=== PATIENT | male | born 1965 | race Caucasian/White ===

== ENCOUNTER 2019-04-15 14:17 | Emergency (ER) | payer OTHER, SELFPAY ==
[2019-04-15 14:36] VITALS: BP 129/72; PULSE 87; RESP 18; TEMP 37.5; O2SAT 98
--- NOTE | 2019-04-15 15:08 | ED.GENADULT ---
HPI - General Adult General Chief complaint: Dental/Oral Stated complaint: cough chest congestion Time Seen by Provider: 04/15/19 15:10 Source: patient and RN notes reviewed Mode of arrival: ambulatory Limitations: no limitations History of Present Illness HPI narrative: This is a 54 years old male presented office for evaluation of cold symptoms for 1 to 2 weeks. Symptoms began with scratchy throat, stuffy nose, and then cough. Denies fever however he felt warm. He also admits to really bad teeth however he cannot afford to see a dentist. No treatment prior to arrival. He smoke a pack a day. Denies sick contact at home. Related Data Allergies Allergy/AdvReac Type Severity Reaction Status Date / Time No Known Allergies Allergy Unverified 03/07/16 15:31 Review of Systems Review of Systems: Narrative: CONSTITUTIONAL: Denies fever ENT:Reports rhinorrhea, congestion, sore throat, dental pain CARDIOVASCULAR: Denies chest pain RESPIRATORY: Denies dyspnea, wheezing. Reports cough GASTROINTESTINAL: Denies abdominal pain, nausea, vomiting, diarrhea. GENITOURINARY: Denies urinary symptoms or discharge SKIN: Denies rash MUSCULOSKELETAL: Denies acute back pain NEUROLOGIC: Denies lightheaded PMFSH Social History Social History Smoking packs per day: 1 Smoking cigarettes per day: 20.0 Smoking status: Current every day smoker Comments At time of signature, I agree with nursing past medical, surgical, social and family history. There is no relevant family history pertinent to the presenting complaint. Exam Narrative: Exam Narrative: GENERAL: This is well-developed patient, thin, older than states age, in no apparent distress. EYES: Sclera clear/white. Vision is grossly intact. EARS: External ears normal, auditory canals clear and without drainage, TMs normal without perforation. Hearing grossly intact. NOSE: External nose normal with no obvious nasal discharge, nares without redness, no rhinorrhea. THROAT: Mucous membranes moist, posterior pharynx erythema with drainage. NECK: Neck supple, non-tender without lymphadenopathy, masses or thyromegaly. CARDIOVASCULAR: Regular rate and rhythm without murmurs, gallops, or rubs. RESPIRATORY: Diminished breath sounds throughout. Breath sounds equal bilaterally. No wheezes, rales, or rhonchi. GASTROINTESTINAL: Abdomen soft, non-tender, nondistended. Bowel sounds are active. No hepato-splenomegaly, or palpable masses. No guarding. SKIN: warm, intact with no suspicious lesions or rash, good texture and turgor. NEURO: awake, alert, and oriented to person, place and time. There were no obvious focal neurologic abnormalities. Steady gait Sunshine Coma Scale Eye Opening: Spontaneous 4 Sunshine Coma Scale Motor: Obeys Commands 6 Sunshine Coma Scale Verbal: Oriented 5 Course Vital Signs Vital signs: Vital Signs Temperature 99.5 F 04/15/19 14:36 Pulse Rate 87 04/15/19 14:36 Respiratory Rate 18 04/15/19 14:36 Blood Pressure 129/72 04/15/19 14:36 Pulse Oximetry 98 04/15/19 14:36 Temperature 99.5 F 04/15/19 14:36 Pulse Rate 87 04/15/19 14:36 Respiratory Rate 18 04/15/19 14:36 Blood Pressure 129/72 04/15/19 14:36 Pulse Oximetry 98 04/15/19 14:36 Medical Decision Making MDM Narrative Medical decision making narrative: Discharge instructions reviewed with patient, as well as provided in writing per nursing staff. The instructions also include specific and strict return/GO TO THE ER as well as f/u information. All questions have been answered, and the patient deny any further questions with discharge and discharge plan. Differential Diagnosis Differential Diagnosis: pneumonia, Allergic Rhinitis, Upper respiratory cough syndrome, Pharyngitis, Sinusitis, Bronchitis, otitis media, viral URI, Asthma/reactive airway disease, influenza, gingivitis, dental abscess, sinusitis, sialadenitis, [place], trig
== END 2019-04-15 15:22 | disposition home or self-care (01) ==
PROVIDERS: Emergency Provider Nurse Practitioner
DX: K02.9 Dental caries, unspecified (principal); J06.9 Acute upper respiratory infection, unspecified; R05 Cough; F17.200 Nicotine dependence, unspecified, uncomplicated
CPT/HCPCS: 99203; G0463

== ENCOUNTER 2019-05-26 13:46 | Emergency (ER) | payer OTHER, SELFPAY ==
[2019-05-26 13:55] VITALS: BP 127/73; PULSE 78; RESP 20; TEMP 37.6; O2SAT 98
--- NOTE | 2019-05-26 14:02 | ED.DENTAL ---
HPI - Dental/Oral General Stated complaint: Teeth pain Time Seen by Provider: 05/26/19 14:03 Source: patient and RN notes reviewed Mode of arrival: ambulatory Limitations: no limitations History of Present Illness HPI Narrative: 54-year-old male presents with concern for dental pain. He reports he was on antibiotic approximately 1-1/2 months ago that offered some relief however the pain has returned. He reports he has not been able to afford to go to a dentist. He reports intermittent right cheek swelling. Reports being a smoker. Reports using aspirin, denies any other intervention MD Complaint: tooth pain Teeth map: 1. Broken teeth with caries Related Data Allergies Allergy/AdvReac Type Severity Reaction Status Date / Time No Known Allergies Allergy Unverified 05/26/19 14:12 Review of Systems Review of Systems: Narrative: CONSTITUTIONAL: Denies malaise, chills, sweats, or fever. EYES: Denies visual changes, redness, or discharge. ENT: Denies rhinorrhea, congestion, sinus pain, otalgia or sore throat. Reports right upper dental pain CARDIOVASCULAR: Denies chest pain, palpitations RESPIRATORY: Denies cough or dyspnea. GASTROINTESTINAL: Denies abdominal pain, nausea, vomiting, diarrhea SKIN: Reports intermittent right cheek swelling MUSCULOSKELETAL: Denies myalgia. NEUROLOGIC: Denies numbness, weakness, or headache. All systems reviewed & are unremarkable except as noted in HPI and below PMFSH Social History Social History Smoking packs per day: 1 Smoking cigarettes per day: 20.0 Smoking status: Current every day smoker Comments At time of signature, agree with nursing past medical, surgical, social and family history. There is no relevant family history pertinent to the presenting complaint Exam Narrative: Exam Narrative: GENERAL: Well-appearing, well-nourished, and in no acute distress. HEAD: Normocephalic, atraumatic. EYES: PERRLA, conjunctivae clear ENT: Nares clear. Mucous membranes moist. ropharynx without edema, erythema or lesions. Many missing teeth, broken teeth, caries. No periapical abscess noted. NECK: Supple. CHEST: No respiratory distress. Clear to auscultation. No bony deformities, no asymmetry. Speaks in full sentences. HEART: Regular rate and rhythm. No murmur heard. SKIN: Warm, dry NEURO: Alert and oriented x3. PSYCH: Normal mood and affect Course Course Emergency Course: Patient is aware of diagnosis, understands and agrees to treatment plan. Anticipatory guidance given. Patient agrees to follow-up as directed and is aware of reasons to seek care at the emergency department. Portions of this record may have been created with voice recognition software Vital Signs Vital signs: Vital Signs Temperature 99.6 F 05/26/19 13:55 Pulse Rate 78 05/26/19 13:55 Respiratory Rate 20 05/26/19 13:55 Blood Pressure 127/73 05/26/19 13:55 Pulse Oximetry 98 05/26/19 13:55 Temperature 99.6 F 05/26/19 13:55 Pulse Rate 78 05/26/19 13:55 Respiratory Rate 20 05/26/19 13:55 Blood Pressure 127/73 05/26/19 13:55 Pulse Oximetry 98 05/26/19 13:55 Reviewed. MDM - Dental/Oral MDM Narrative Medical decision making narrative: Patients pain and complaint coupled with physical findings are consistant with dentalgia. There are no focal signs of space occupying lesions that are compromising to the airway; no dysphagia, odynophagia, dysphonia, or dyspnea. No uvular deviation or soft palate edema. Patient is non-toxic appearing. The floor of the mouth is soft with no signs of Alfredo's Angina; no induration below mandible, no neck pain. Patient is without trismus or drooling and able to swallow secretions. Patient is felt appropriate for discharge home with dental follow up. Critical Care Time Critical Care Time Critical Care Time: No Discharge Plan Discharge Clinical Impression: Dentalgia Patient Dispositio
== END 2019-05-26 14:15 | disposition home or self-care (01) ==
PROVIDERS: Emergency Provider Nurse Practitioner
DX: K08.89 Other specified disorders of teeth and supporting structures (principal); F17.210 Nicotine dependence, cigarettes, uncomplicated
CPT/HCPCS: 99213; G0463

== ENCOUNTER 2020-06-15 08:50 | Emergency (ER) | payer OTHER, SELFPAY ==
[2020-06-15 08:54] VITALS: BP 118/56; PULSE 105; RESP 16; TEMP 36.9; O2SAT 100
--- NOTE | 2020-06-15 09:02 | ED.DENTAL ---
HPI - Dental/Oral General Chief complaint: Dental/Oral Stated complaint: tooth pain Time Seen by Provider: 06/15/20 09:03 Source: patient, RN notes reviewed and old records reviewed Mode of arrival: ambulatory Limitations: no limitations History of Present Illness HPI Narrative: 55 year old male presents to [facility] care with complaints of increase dental pain to upper right and lower right side of his gums and remaining teeth since this weekend. Patient has several missing, broken and obvious decayed teeth with stated history of dental problems for years. Patient states that he has been chewing on aspirin to the area for his discomfort which helps for a short interval. Patient admits to long history of tobacco abuse. He reports that he can only chew on the right side and with the pain he has had difficulty eating.Patient states that he has no dentist and has long history of bad teeth , denie any fevers chills or sweats or any difficulty with his swallowing or increased dyspnea. MD Complaint: tooth pain Location: Tooth # (2,3, lower gums 28 29,30 teeth broken off) Onset (ago): day(s) (3) Duration: constant Severity: mild (at present time) Severity scale (1-10): 1 Relieving factors: nothing Exacerbating factors: chewing, cold and heat Context: history of dental caries and poor dental care Associated symptoms: gum swelling Treatment prior to arrival: other (aspirin) Related Data Allergies Allergy/AdvReac Type Severity Reaction Status Date / Time No Known Allergies Allergy Unverified 06/15/20 09:02 Review of Systems Review of Systems: Narrative: CONSTITUTIONAL: Denies fever, chills, or sweats. EYES: Denies visual changes, redness, or discharge. ENT: Denies rhinorrhea, congestion, sore throat, or otalgia.positive for dental pain and gum pain to right upper and lower mouth, several broken, missing, and obvious decayed teeth CARDIOVASCULAR: Denies chest pain, palpitations, or edema. RESPIRATORY: Denies acute cough or dyspnea. or any swallowing diffulty GASTROINTESTINAL: Denies abdominal pain, nausea, vomiting, or diarrhea. GENITOURINARY: Denies dysuria or hematuria. SKIN: Denies rash or itching. MUSCULOSKELETAL: Denies back pain, joint pain, or myalgia. NEUROLOGIC: Denies headache, numbness, or weakness. PSYCHIATRIC: Denies anxiety or depression. All systems reviewed & are unremarkable except as noted in HPI and below PMFSH Past Medical History Medical History Bronchitis Fracture of right elbow Surgical History Surgical History (Updated 06/18/20 @ 11:53 by Katelynn Pearce NP) No history of previous surgery Family History Family History Other Heart disease Hypertension Social History Social History (Updated 06/18/20 @ 11:54 by Katelynn Pearce NP) Smoking packs per day: 1 Smoking cigarettes per day: 20.0 Years smoked: 40 Smoking pack-years: 40.00 Smoking status: Current every day smoker Alcohol intake: never Alcohol use details: beer sometimes daily Substance use: never Living arrangements: with family Gender identity (if verbalized by the patient): Male Comments At time of signature, agree with nursing past medical, surgical, social and family history. There is no relevant family history pertinent to the presenting complaint Exam Narrative: Exam Narrative: GENERAL:unkept appearing, poor-nourished, and in no acute distress. HEAD: Normocephalic, atraumatic. EYES: PERRLA and EOMI. ENT: Nares clear, no rhinorrhea or epistaxis. Mucous membranes moist.TM's normal with good light reflex, no throat redness or swelling, no lesions or exudates or tonsil enlargement, multiple broken missing and decayed teeth, dental pain and gum swelling right upper and lower gums with pain to decayed teeth #2,3, no abscess noted. NECK: Supple.no lymphadenopathy no Alfredo angina CHEST: Clear decreased michelle
[2020-06-15 09:03] VITALS: BP 118/56; PULSE 105; RESP 16; TEMP 36.9; O2SAT 100
== END 2020-06-15 09:30 | disposition home or self-care (01) ==
PROVIDERS: Emergency Provider Registered Nurse
DX: K02.9 Dental caries, unspecified (principal); F17.210 Nicotine dependence, cigarettes, uncomplicated
CPT/HCPCS: 99213; G0463